=== PATIENT | male | born 1995 | race Caucasian/White ===

== ENCOUNTER 2018-10-06 19:48 | Emergency (ER) | payer OTHER ==
[2018-10-06 20:13] VITALS: BP 125/70
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
[2018-10-06] MEDS ORDERED: SULFAMETHOXAZOLE/TRIMETHOPRIM 800-160 MG TABLET PO ONE (23:24)
[2018-10-06] MEDS ORDERED: CEPHALEXIN 500 MG CAPSULE PO ONE (23:24)
== END 2018-10-06 23:31 | disposition home or self-care (01) ==
LOC: ER 19:48
DX: L02.411 Cutaneous abscess of right axilla (principal); F17.210 Nicotine dependence, cigarettes, uncomplicated
CPT/HCPCS: 87070; 87075; 87077; 87186; 87205; 99283